=== PATIENT | female | born 1990 | race Caucasian/White ===

== ENCOUNTER 2016-07-19 21:50 | Inpatient (IN) | payer BC ==
[2016-07-19] MEDS ORDERED: Sodium Chloride 0.9% 2.5 ML Syringe FLUSH PRN (22:24)
[2016-07-19] MEDS ORDERED: Butorphanol 1 MG/ML SDV IVPUSH PRN (22:24)
[2016-07-19] MEDS ORDERED: Carboprost Tromethamine 250 MCG/1 ML Amp IM PRN (22:24)
[2016-07-19] MEDS ORDERED: Misoprostol 200 MCG Tab PO PRN (22:24)
[2016-07-19] MEDS ORDERED: Terbutaline 1 MG/ML SDV SUBCUT PRN (22:24)
[2016-07-19] MEDS ORDERED: Lidocaine 1% 50 ML MDV INJECT PRN (22:24)
[2016-07-19] MEDS ORDERED: Sodium Chloride 0.9% 10 ML Syringe FLUSH PRN (22:24)
[2016-07-19] MEDS ORDERED: Methylergonovine 0.2 MG/1 ML Amp IM PRN (22:24)
[2016-07-19] MEDS ORDERED: Water For Irrigation,Sterile 1,000 ML Container IRR PRN (22:24)
[2016-07-19] MEDS ORDERED: Nalbuphine 10 MG/1 ML Vial IVPUSH PRN (22:24)
[2016-07-19] MEDS ORDERED: Oxytocin/Lactated Ringers 30 UNIT/500 ML BAG IV SCH ×2 (22:30)
[2016-07-19] MEDS ORDERED: Misoprostol 25 MCG (1/4 of 100 MCG) Tab VAG SCH (23:00)
[2016-07-20] MEDS ORDERED: Misoprostol 25 MCG (1/4 of 100 MCG) Tab VAG PRN (03:00)
[2016-07-20] MEDS: Lactated Ringers 1,000 ML IV SCH ×2 (06:39→07:49)
[2016-07-20] MEDS ORDERED: Ropivacaine HCl/PF 100 ML ONE (07:10)
[2016-07-20] MEDS ORDERED: fentaNYL 100 MCG/2 ML SDV ONE (07:12)
[2016-07-20] MEDS ORDERED: ePHEDrine 50 MG/ML SDV ONE (07:12)
--- NOTE | 2016-07-20 09:29 | PCM.PREANE ---
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 ) ASA Class: 2 Mental Status: alert & oriented x3 Airway Class: Mallampati = 2 Dentition: Reports: normal dentition Thyro-Mental Finger Breadths: 3 Mouth Opening Finger Breadths: 2 ROM/Head Extension: full Respiratory Status: lungs clear to auscultation bilaterally Cardiovascular Status: regular rate & rhythm, normal S1, S2, no murmur, blood pressure WNL - LAB Values: Laboratory Last Values WBC 10.09 K/uL (4.0-11.0) 07/19/16 22:40 RBC 4.01 M/uL (4.30-5.90) L 07/19/16 22:40 Hgb 11.9 g/dL (12.0-16.0) L 07/19/16 22:40 Hct 36.2 % (36.0-46.0) 07/19/16 22:40 MCV 90.3 fL (80.0-98.0) 07/19/16 22:40 MCH 29.7 pg (27.0-32.0) 07/19/16 22:40 MCHC 32.9 g/dL (31.0-37.0) 07/19/16 22:40 RDW Std Deviation 46.0 fl (28.0-62.0) 07/19/16 22:40 RDW Coeff of Eddie 14 % (11.0-15.0) 07/19/16 22:40 Plt Count 131 K/uL (150-400) L 07/19/16 22:40 MPV 11.90 fL (7.40-12.00) 07/19/16 22:40 Nucleated RBC % 0.0 /100WBC 07/19/16 22:40 Nucleated RBCs # 0 K/uL 07/19/16 22:40 Blood Type A POSITIVE 07/19/16 22:40 Antibody Screen NEGATIVE 07/19/16 22:40 - ALLERGIES Allergies/Adverse Reactions: Allergies Allergy/AdvReac Type Severity Reaction Status Date / Time No Known Allergies Allergy Verified 03/03/16 11:21 - ANESTHESIA PLAN Anesthesia Type Planned: epidural - ACKNOWLEDGEMENTS Pt an appropriate candidate for the planned anesthesia: Yes Alternatives and risks of anesthesia discussed w pt/guardian: Yes Pt/Guardian understands and agree with anesthesia plan: Yes PreAnesthesia Questionnaire Genitourinary History: Reports: Renal calculus 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 - Past Surgical History Female Surgical History: Reports: Lithotripsy/ESWL Musculoskeletal Surgical History: Reports: Shoulder surgery - SUBSTANCE USE Smoking Status *Q: Never Smoker Second Hand Smoke Exposure: No Recreational Drug Use History: No - HOME MEDS Home Medications: Home Meds oxyCODONE 5 mg PO Q4H #10 tablet 03/02/16 [Rx] Pnv No.122/Iron/Folic Acid [ Multi Tablet] 1 each PO DAILY 03/03/16 [ History] - CURRENT (IN HOUSE) MEDS Current Meds: Current Medications Butorphanol Tartrate (Stadol) 1 mg IVPUSH ASDIRECTED PRN PRN Reason: Pain Carboprost Tromethamine (Hemabate Ds) 250 mcg IM ASDIRECTED PRN PRN Reason: Post Hemorrhage Lactated Ringer's (Ringers, Lactated) 1,000 mls @ 150 mls/hr IV ASDIRECTED ÁLVARO Last Admin: 07/20/16 07:49 Dose: 150 mls/hr Oxytocin/Lactated Ringer's (Pitocin In Lr 30 Units/500 Ml) 30 unit in 500 mls @ 2 mls/hr IV TITRATE ÁLVARO; 2 MUNITS/MIN PRN Reason: Protocol Last Admin: 07/20/16 08:50 Dose: 2 munits/min, 2 mls/hr Lidocaine HCl (Xylocaine 1%) 50 ml INJECT .ONCE PRN PRN Reason: Laceration repair Methylergonovine Maleate (Methergine) 0.2 mg IM ASDIRECTED PRN PRN Reason: Post Hemorrhage Misoprostol (Cytotec) 200 mcg PO .ONCE PRN PRN Reason: Post Hemorrhage Misoprostol (Cytotec) 25 mcg VAG .ONCE ÁLVARO Last Admin: 07/19/16 23:23 Dose: 25 mcg Misoprostol (Cytotec) 25 mcg VAG Q4H PRN PRN Reason: Cervical Ripening Stop: 07/21/16 07:01 Nalbuphine HCl (Nubain) 10 mg IVPUSH ASDIRECTED PRN PRN Reason: Pain (severe 7-10) Stop: 07/21/16 22:25 Sodium Chloride (Saline Flush) 10 ml FLUSH ASDIRECTED PRN PRN Reason: Keep Vein Open Sodium Chloride (Saline Flush) 2.5 ml FLUSH ASDIRECTED PRN PRN Reason: Keep Vein Open Sterile Water (Sterile Water For Irrigation) 1,000 ml IRR ASDIRECTED PRN PRN Reason: delivery Terbutaline Sulfate (Brethine) 0.25 mg SUBCUT ASDIRECTED PRN PRN Reason: Tacysystole Discontinued Medications Ephedrine Sulfate (Ephedrine Sulfate) Confirm Administered Dose 50 mg .ROUTE .STK-MED ONE Stop: 07/20/16 07:13 Fentanyl (Sublimaze) Confirm Administered Dose 200 mcg .ROUTE .STK-MED ONE Stop: 07/20/16 07:13 Oxytocin/Lactated Ringer's (Pitocin In Lr 30 Units/500 Ml) 30 unit in 500 mls @ 500 mls/hr IV TITRATE [facility] PRN Reason: 500 MUNITS/MIN Stop: 07/19/16 23:29 Ropivacaine (Naropin 0.2%) Confirm Administered Dose 100 mls @ as directed .ROUTE .STK-MED ONE Stop: 07/20/16 07:11
[2016-07-20] MEDS ORDERED: Ondansetron 4 MG/2 ML SDV IVPUSH PRN (10:48)
[2016-07-20] MEDS ORDERED: Sodium Chloride 0.65% Nasal Spray 45 ML Bottle NASBOTH PRN (11:36)
[2016-07-20] MEDS ORDERED: Docusate Sodium 100 MG Cap PO PRN (12:50)
[2016-07-20] MEDS ORDERED: Benzocaine/Menthol 20%-0.5% Spray 78 GM Cannister TOP PRN (12:50)
[2016-07-20] MEDS ORDERED: Lanolin 100% Cream 7 GM Tube TOP PRN (12:50)
[2016-07-20] MEDS ORDERED: Witch Hazel Medicated Pads 40/Jar TOP PRN (12:50)
[2016-07-20] MEDS ORDERED: oxyCODONE 5 MG Tab PO PRN (12:50)
[2016-07-20] MEDS ORDERED: Bisacodyl 10 MG Supp RECTAL PRN (12:50)
[2016-07-20] MEDS ORDERED: Acetaminophen 500 MG Tab PO PRN ×2 (12:50)
[2016-07-20] MEDS ORDERED: Ibuprofen 400 MG Tab PO PRN (12:50)
[2016-07-20] MEDS: Ibuprofen 800 MG Tab PO PRN (17:15)
--- NOTE | 2016-07-20 18:38 | PCM48HPAN ---
Post Anesthesia Note - EVALUATION WITHIN 48HRS OF ANESTHETIC Vital Signs in Normal Range: Yes Patient Participated in Evaluation: Yes Respiratory Function Stable: Yes Airway Patent: Yes Cardiovascular Function Stable: Yes Hydration Status Stable: Yes Pain Control Satisfactory: Yes Nausea and Vomiting Control Satisfactory: Yes Mental Status Recovered: Yes - COMMENTS/OBSERVATIONS Free Text/Narrative:: Full return of sensation and motor movement to lower extremities. Denies any problems or complications from epidural.
--- NOTE | 2016-07-20 21:33 | OR ---
SURGEON: Brit Mcintosh MD DATE OF PROCEDURE: 07/20/2016 PREOPERATIVE DIAGNOSES: 1. Term at 39 weeks and 1 day. 2. Elective induction of labor. POSTOPERATIVE DIAGNOSES: 1. Term at 39 weeks and 1 day. 2. Elective induction of labor. 3. Delivered. PROCEDURE: Spontaneous vaginal delivery ANESTHESIA: Epidural. ESTIMATED BLOOD LOSS: 150 mL. COMPLICATIONS: None. DISPOSITION: Mother and baby stable in Labor and delivery room, bonding. FINDINGS: Male infant, weight 3180 g. score 8 and 9 at 1 and 5 minutes respectively. Clear amniotic fluid. Nuchal cord, loose x 2. Grossly normal placenta with 3-vessel cord. Intact perineum. BRIEF HISTORY: The patient is a 25-year-old G4, P2 at 39 weeks and 1 day gestation, uncomplicated care. Admitted overnight at 39 weeks gestation for elective induction of labor secondary to history of shoulder dystocia complicated with third-degree laceration. GBS negative. She received a dose of Cytotec, 25mcg, on admission. Artificial rupture of membranes was performed at about 5:00 a.m. this morning, clear amniotic fluid and oxytocin infusion was commenced as per protocol. She received epidural for pain management. She made good progress, became fully dilated and commenced active pushing. She pushed quite well bringing the baby's head down to a +5 station and was set up for delivery in the modified dorsal lithotomy position. PROCEDURE IN DETAIL: She had spontaneous vaginal delivery of a live male infant in left occipital anterior position, nuchal cord twice, loose, easily reduced, clear amniotic fluid at delivery. Anterior and posterior shoulders and the rest of the baby were delivered without difficulty. Baby was vigorous and cried spontaneously at . Baby was delivered onto the maternal abdomen with the nursery nurse attending to him. The cord was double clamped after it had ceased pulsating and was cut by the father of the baby. With delivery of the , oxytocin infusion, titration was commenced for active management of third stage of labor. Cord blood and gas samples were obtained. Placenta was delivered by controlled cord traction appeared to be complete and intact. Examination of the perineum revealed no lacerations. Uterine massage was performed. The uterus was found to be well contracted below the umbilicus. The patient tolerated the procedure well. Sponge, instrument, and needle counts were correct at the end of the delivery. ADUMVIV / MODL /[id number] MTDD
[2016-07-21] MEDS: Ibuprofen 800 MG Tab PO PRN (03:31)
--- NOTE | 2016-07-21 07:37 | PCM.PNPP ---
- General Info Date of Service: 07/21/16 Functional Status: Reports: pain controlled, tolerating diet, ambulating, urinating - Review of Systems General: Denies: fever, weakness, fatigue, malaise Pulmonary: Denies: shortness of breath, pleuritic chest pain, cough Cardiovascular: Denies: chest pain, palpitations, dyspnea on exertion Gastrointestinal: Denies: Abdominal pain Genitourinary: Denies: dysuria, incontinence Neurological: Denies: dizziness, headache Psychiatric: Denies: confusion, depression, mood lability - Patient Data Vital Signs - most recent: Last Vital Signs Temp 36.8 C 07/21/16 05:19 Pulse 80 07/21/16 05:19 Resp 17 07/21/16 05:19 BP 104/60 07/21/16 05:19 Pulse Ox 98 07/21/16 05:19 Weight - most recent: 182 lb Lab Results - last 24 hrs: Laboratory Results - last 24 hr 07/21/16 Range/Units 04:20 Hgb 11.7 L (12.0-16.0) g/dL Hct 35.0 L (36.0-46.0) % Med Orders - Current: Current Medications Acetaminophen (Tylenol Extra Strength) 500 mg PO Q4H PRN PRN Reason: Pain Acetaminophen (Tylenol Extra Strength) 1,000 mg PO Q4H PRN PRN Reason: Pain Last Admin: 07/20/16 20:44 Dose: 1,000 mg Benzocaine/Menthol (Dermoplast Pain Relief 20%-0.5% [place]) 78 gm TOP ASDIRECTED PRN PRN Reason: Perineal Comfort Measure Last Admin: 07/20/16 17:24 Dose: 78 gm Bisacodyl (Dulcolax) 10 mg RECTAL .ONCE PRN PRN Reason: Constipation Docusate Sodium (Colace) 100 mg PO BID PRN PRN Reason: Constipation Emollient Ointment (Lansinoh Hpa) 0 gm TOP ASDIRECTED PRN PRN Reason: Sore Nipples Ibuprofen (Motrin) 400 mg PO Q4H PRN PRN Reason: Pain Ibuprofen (Motrin) 800 mg PO Q6H PRN PRN Reason: Pain Last Admin: 07/21/16 03:31 Dose: 800 mg Oxycodone HCl (Oxycodone) 5 mg PO Q2H PRN PRN Reason: Pain Last Admin: 07/20/16 17:14 Dose: 5 mg Witch Zoila (Tucks) 1 pad TOP ASDIRECTED PRN PRN Reason: comfort care Last Admin: 07/20/16 17:23 Dose: 1 pad Discontinued Medications Butorphanol Tartrate (Stadol) 1 mg IVPUSH ASDIRECTED PRN PRN Reason: Pain Carboprost Tromethamine (Hemabate Ds) 250 mcg IM ASDIRECTED PRN PRN Reason: Post Hemorrhage Ephedrine Sulfate (Ephedrine Sulfate) Confirm Administered Dose 50 mg .ROUTE .STK-MED ONE Stop: 07/20/16 07:13 Fentanyl (Sublimaze) Confirm Administered Dose 200 mcg .ROUTE .STK-MED ONE Stop: 07/20/16 07:13 Lactated Ringer's (Ringers, Lactated) 1,000 mls @ 150 mls/hr IV ASDIRECTED ÁLVARO Last Admin: 07/20/16 07:49 Dose: 150 mls/hr Oxytocin/Lactated Ringer's (Pitocin In Lr 30 Units/500 Ml) 30 unit in 500 mls @ 500 mls/hr IV TITRATE ÁLVARO PRN Reason: 500 MUNITS/MIN Stop: 07/19/16 23:29 Oxytocin/Lactated Ringer's (Pitocin In Lr 30 Units/500 Ml) 30 unit in 500 mls @ 2 mls/hr IV TITRATE ÁLVARO; 2 MUNITS/MIN PRN Reason: Protocol Last Titration: 07/20/16 11:36 Dose: 16 munits/min, 16 mls/hr Ropivacaine (Naropin 0.2%) Confirm Administered Dose 100 mls @ as directed .ROUTE .STK-MED ONE Stop: 07/20/16 07:11 Lidocaine HCl (Xylocaine 1%) 50 ml INJECT .ONCE PRN PRN Reason: Laceration repair Methylergonovine Maleate (Methergine) 0.2 mg IM ASDIRECTED PRN PRN Reason: Post Hemorrhage Misoprostol (Cytotec) 200 mcg PO .ONCE PRN PRN Reason: Post Hemorrhage Misoprostol (Cytotec) 25 mcg VAG .ONCE ÁLVARO Last Admin: 07/19/16 23:23 Dose: 25 mcg Misoprostol (Cytotec) 25 mcg VAG Q4H PRN PRN Reason: Cervical Ripening Stop: 07/21/16 07:01 Nalbuphine HCl (Nubain) 10 mg IVPUSH ASDIRECTED PRN PRN Reason: Pain (severe 7-10) Stop: 07/21/16 22:25 Ondansetron HCl (Zofran) 4 mg IVPUSH Q6H PRN PRN Reason: Nausea/Vomiting Last Admin: 07/20/16 10:54 Dose: 4 mg Sodium Chloride (Saline Flush) 10 ml FLUSH ASDIRECTED PRN PRN Reason: Keep Vein Open Sodium Chloride (Saline Flush) 2.5 ml FLUSH ASDIRECTED PRN PRN Reason: Keep Vein Open Sodium Chloride ([place] Nasal [place]) 0 ml NASBOTH Q2H PRN PRN Reason: Congestion Sterile Water (Sterile Water For Irrigation) 1,000 ml IRR ASDIRECTED PRN PRN Reason: delivery Terbutaline Sulfate (Brethine) 0.25 mg SUBCUT ASDIRECTED PRN PRN Reason: Tacysystole - Interaction Support Person: - Recovery Exam Fundal Tone: Firm Fundal Level: 1 Fingerbreadths Below Umbilicus Fundal Placement: Midline Lochia Amount: Scant Lochia Color: Rubra/Red Perineum Description: Intact, Minimal Bruising/Swelling Episiotomy/Laceration: None Bladder Status: Voiding Urinary Elimination: Voided - Problem List & Annotations (1) Vaginal delivery SNOMED Code(s): 245243218 Code(s): O80 - ENCOUNTER FOR FULL-TERM UNCOMPLICATED DELIVERY Status: Acute Current Visit: Yes - Problem List Review Problem List Initiated/Reviewed/Updated: Yes - My Orders Last 24 Hours: My Active Orders 07/20/16 12:50 Patient Status [ADT] Routine May Shower [RC] ASDIRECTED Up ad Sahra [RC] ASDIRECTED Vital Signs [RC] PER UNIT ROUTINE Acetaminophen [Tylenol Extra Strength] 1,000 mg PO Q4H PRN Acetaminophen [Tylenol Extra Strength] 500 mg PO Q4H PRN Benzocaine/Menthol [Dermoplast Pain Relief 20%-0.5% [place]] 78 gm TOP ASDIRECTED PRN Bisacodyl [Dulcolax] 10 mg RECTAL .ONCE PRN Docusate Sodium [Colace] 100 mg PO BID PRN Ibuprofen [Motrin] 400 mg PO Q4H PRN Ibuprofen [Motrin] 800 mg PO Q6H PRN Lanolin [Lansinoh HPA] See Dose Instructions TOP ASDIRECTED PRN [place] Zoila [Tucks] 1 pad TOP ASDIRECTED PRN oxyCODONE 5 mg PO Q2H PRN Assess Lochia [WOMSER] Per Unit Routine Assess Uterine Involution [WOMSER] Per Unit Routine Breast Pump [WOMSER] Per Unit Routine Peripheral IV Discontinue [OM.PC] Routine Resuscitation Status Routine 07/20/16 12:51 Perineal Care [OM.PC] Per Unit Routine 07/20/16 Dinner Regular Diet [DIET] - Assessment Assessment:: PPD#1 s/p , stable and afebrile No concerns. Hgb stable - Plan Plan:: Discharge instructions reviewed Nothing in the vagina for 6 weeks Bleeding and infection precautions reviewed OTC pain meds Continue PNV Follow up in 6 weeks at [facility]
[2016-07-21 09:13] VITALS: BP 107/64
== END 2016-07-21 14:55 | disposition home or self-care (01) | DRG 560 ==
LOC: MW.OBCHECK 21:50 → MW.OB 22:24 → OBSVTOIN 07-20 12:35
PROVIDERS: ADMIT Obstetrics & Gynecology; ATTEND Obstetrics & Gynecology
PROC: 10E0XZZ Delivery of Products of Conception, External Approach (ICD-10-PCS; principal; 2016-07-20)
PROC: 10907ZC Drainage of Amniotic Fluid, Therapeutic from Products of Conception, Via Natural or Artificial Opening (ICD-10-PCS; 2016-07-20)
PROC: 3E0P7GC Introduction of Other Therapeutic Substance into Female Reproductive, Via Natural or Artificial Opening (ICD-10-PCS; 2016-07-20)
DX: O80 Encounter for full-term uncomplicated delivery (principal); Z3A.39 39 weeks gestation of pregnancy; Z37.0 Single live birth
CPT/HCPCS: 01967; 36415; 59025; 85014; 85018; 85027; 86850; 86900; 86901; A9270-GY; J2405; J2795; J3010; J7120

== ENCOUNTER 2020-01-20 04:59 | Inpatient (IN) | payer BC ==
[2020-01-20] MEDS ORDERED: Misoprostol 200 MCG Tab PO PRN (05:27)
[2020-01-20] MEDS ORDERED: Lidocaine 1% 50 ML MDV INJECT PRN (05:27)
[2020-01-20] MEDS ORDERED: Nalbuphine 10 MG/1 ML Vial IVPUSH PRN (05:27)
[2020-01-20] MEDS ORDERED: Methylergonovine 0.2 MG/1 ML Amp IM PRN (05:27)
[2020-01-20] MEDS ORDERED: Tranexamic Acid 1,000 MG in Sodium Chloride 0.9% 100 ML IV PRN (05:27)
[2020-01-20] MEDS ORDERED: Sodium Chloride 0.9% 10 ML Syringe FLUSH PRN (05:27)
[2020-01-20] MEDS ORDERED: Water For Irrigation,Sterile 1,000 ML Container IRR PRN (05:27)
[2020-01-20] MEDS ORDERED: Carboprost Tromethamine 250 MCG/1 ML Amp IM PRN (05:27)
[2020-01-20] MEDS ORDERED: Sodium Chloride 0.9% 10 ML SDV IV PRN (05:27)
[2020-01-20] MEDS ORDERED: Butorphanol 1 MG/ML SDV IVPUSH PRN (05:27)
[2020-01-20] MEDS ORDERED: Sodium Chloride 0.9% 2.5 ML Syringe FLUSH PRN (05:27)
[2020-01-20] MEDS ORDERED: Oxytocin/0.9 % Sodium Chloride 30 UNIT/500 ML BAG IV SCH ×2 (05:30→05:45)
[2020-01-20] MEDS ORDERED: Terbutaline 1 MG/ML SDV SUBCUT PRN (05:32)
[2020-01-20] MEDS ORDERED: Misoprostol 25 MCG (1/4 of 100 MCG) Tab VAG PRN ×2 (05:32)
[2020-01-20] MEDS ORDERED: Misoprostol 25 MCG (1/4 of 100 MCG) Tab PO ONE (06:47)
[2020-01-20] MEDS: Lactated Ringers 1,000 ML IV SCH ×3 (07:20→20:24)
--- NOTE | 2020-01-20 08:11 | PCM.LDHP ---
L&D History of Present Illness - General Date of Service: 01/20/20 Admit Problem/Dx: Patient Status Order with Admit Dx/Problem 01/20/20 05:28 Patient Status [ADT] Routine Admission Diagnosis/Problem Admission Diagnosis/Problem - planned 01/20/20 08:06 Susie is a 29 yo at 39.0 weeks gestation (YARIEL 01/27/2022) that presents today for IOL due to problematic kidney stones/right flank pain this . A pos, RI, GBS neg. Other pertinent history includes: anxiety, SAB, x 3 (proven pelvis to 7 lb 5 oz), H/O kideny stones, pre- obesity. Patient reports adequate movement; denies vaginal bleeding, LOF, or any other problems or concerns at this time, 0/10 pain at this time. Source of Information: Patient History Limitations: Reports: No Limitations - Related Data Allergies/Adverse Reactions: Allergies Allergy/AdvReac Type Severity Reaction Status Date / Time No Known Allergies Allergy Verified 01/20/20 05:23 Home Medications: Home Meds oxyCODONE 5 mg PO Q4H #10 tablet 03/02/16 [Rx] No122/Iron/Folic Acid [ Multi Tablet] 1 each PO DAILY 03/03/16 [History] Past Medical History HEENT History: Reports: Impaired Vision Cardiovascular History: Reports: None Respiratory History: Reports: None Gastrointestinal History: Reports: None Genitourinary History: Reports: Renal Calculus 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 Endocrine/Metabolic History: Reports: None Hematologic History: Reports: None Immunologic History: Reports: None Dermatologic History: Reports: None - Infectious Disease History Infectious Disease History: Reports: None - Past Surgical History Musculoskeletal Surgical History: Reports: Shoulder Surgery Social & Family History - Family History Endocrine/Metabolic: Reports: Diabetes, type II Oncologic: Reports: Lung - Tobacco Use Smoking Status *Q: Never Smoker Second Hand Smoke Exposure: No - Caffeine Use Caffeine Use: Reports: Coffee - Alcohol Use Alcohol Use History: No - Recreational Drug Use Recreational Drug Use: No H&P Review of Systems - Review of Systems: Review Of Systems: Comprehensive ROS is negative, except as noted in HPI. General: Reports: No Symptoms HEENT: Reports: No Symptoms Pulmonary: Reports: No Symptoms Cardiovascular: Reports: No Symptoms Gastrointestinal: Reports: No Symptoms, Other (Gravid uterus, 39 cm) Genitourinary: Reports: No Symptoms Musculoskeletal: Reports: No Symptoms Skin: Reports: No Symptoms Psychiatric: Reports: No Symptoms Neurological: Reports: No Symptoms Hematologic/Lymphatic: Reports: No Symptoms Immunologic: Reports: No Symptoms L&D Exam - Exam Exam: See Below - Vital Signs Vital Signs: BP 123/80 (89), T 97.5, RR 15, HR 87 Weight: 201 lb - OB Specific Fundal Height In cm: 39 Contraction Intensity: Irritability Movement: Active Heart Tones: Present Heart Tones per Min: 130 Heart Rate (FHR) Variability: Moderate (6-25 bmp) Presentation: Vertex (Confirmed vertex via handheld TAUS today.) - Rothman Score Rothman Score Cervix Position: Posterior Rothman Score Consistency: Medium Rothman Score Effacement: 31-50% Rothman Score Dilation: 1-2 cm Rothman Score Infant's Station: -2 Rothman Score Total: 4 - Exam General: Alert, Oriented HEENT: Conjunctiva Clear, Hearing Intact, Mucosa Moist & [place], Normal Nasal Septum, PERRLA Neck: Supple, Trachea Midline Lungs: Clear to Auscultation, Normal Respiratory Effort Cardiovascular: Regular Rate, Regular Rhythm GI/Abdominal Exam: Normal Bowel Sounds, Soft, Non-Tender, No Organomegaly, No Distention, Pelvis Stable Rectal Exam: Deferred Genitourinary: Normal external exam, Enlarged uterus (Gravid uterus) Back Exam: Normal Inspection (No CVA tenderness), Full Range of Motion Extremities: Normal Inspection, Normal Range of Motion, Non-Tender, No Pedal Edema, Normal Capillary Refill Skin: Warm, Dry, Intact Neurological: Cranial Nerves Intact, Reflexes Equal Bilateral Psychiatric: Alert, Normal Affect, Normal Mood - Patient Data Lab Results Last 24 hrs: Laboratory Results - last 24 hr 01/20/20 01/20/20 01/20/20 Range/Units 05:50 05:50 06:05 WBC 9.71 (4.0-11.0) K/uL RBC 4.15 L (4.30-5.90) M/uL Hgb 12.0 (12.0-16.0) g/dL Hct 36.8 (36.0-46.0) % MCV 88.7 (80.0-98.0) fL MCH 28.9 (27.0-32.0) pg MCHC 32.6 (31.0-37.0) g/dL RDW Std Deviation 46.9 (28.0-62.0) fl RDW Coeff of Eddie 15 (11.0-15.0) % Plt Count 157 (150-400) K/uL MPV 11.80 (7.40-12.00) fL Nucleated RBC % 0.0 /100WBC Nucleated RBCs # 0 K/uL COVID-19 (SUHA) NEGATIVE (NEGATIVE) Blood Type A POSITIVE Antibody Screen NEGATIVE Result Diagrams: 01/20/20 05:50 - Problem List (1) Elective induction of labor planned SNOMED Code(s): 278409282 ICD Code: [id number] - Status: Acute Priority: High Current Visit: Yes (2) 39 weeks gestation of SNOMED Code(s): 68267596 ICD Code: Z3A.39 - 39 WEEKS GESTATION OF Status: Acute Priority: High Current Visit: Yes (3) Renal calculus, right SNOMED Code(s): 02359789 ICD Code: N20.0 - CALCULUS OF KIDNEY Status: Acute Priority: High Current Visit: Yes Problem List Initiated/Reviewed/Updated: Yes Orders Last 24hrs: Active Orders 24 hr Category Date Time Status Patient Status [ADT] Routine ADT 01/20/20 05:28 Active Communication Order [RC] ASDIRECTED Care 01/20/20 05:33 Active Communication Order [RC] ASDIRECTED Care 01/20/20 05:33 Active Communication Order [RC] ASDIRECTED Care 01/20/20 05:33 Active Heart Tones [RC] CONTINUOUS Care 01/20/20 05:28 Active Non Stress Test [RC] PER UNIT ROUTINE Care 01/20/20 05:28 Active May Shower [RC] ASDIRECTED Care 01/20/20 05:28 Active Notify Provider [RC] PRN Care 01/20/20 05:28 Active Notify Provider [RC] PRN Care 01/20/20 05:33 Active Notify Provider [RC] PRN Care 01/20/20 05:33 Active Notify Provider [RC] STAT Care 01/20/20 05:33 Active Oxygen Therapy [RC] ASDIRECTED Care 01/20/20 05:33 Active Up ad Sahra [RC] ASDIRECTED Care 01/20/20 05:28 Active Vaginal Exam [RC] PRN Care 01/20/20 05:28 Active Vital Signs [RC] PER UNIT ROUTINE Care 01/20/20 05:28 Active RPR (SYPHILIS SERO) W/ RFLX [REF] Routine Lab 01/20/20 05:50 Received Butorphanol [Stadol] Med 01/20/20 05:27 Active 1 mg IVPUSH Q1H PRN Carboprost Tromethamine [Hemabate DS] Med 01/20/20 05:27 Active 250 mcg IM ASDIRECTED PRN Lactated Ringers [Ringers, Lactated] 1,000 ml Med 01/20/20 05:30 Active IV ASDIRECTED Lidocaine 1% [Xylocaine 1%] Med 01/20/20 05:27 Active 50 ml INJECT ONETIME PRN Methylergonovine [Methergine] Med 01/20/20 05:27 Active 0.2 mg IM ASDIRECTED PRN Nalbuphine [Nubain] Med 01/20/20 05:27 Active 10 mg IVPUSH Q1H PRN Oxytocin/0.9 % Sodium Chloride [Oxytocin 30 Unit/500 ML Med 01/20/20 05:30 Active -NS] 30 unit in 500 ml IV TITRATE Oxytocin/0.9 % Sodium Chloride [Oxytocin 30 Unit/500 ML Med 01/20/20 05:45 Active -NS] 30 unit in 500 ml IV TITRATE Sodium Chloride 0.9% [Normal Saline] Med 01/20/20 05:27 Active 10 ml IV ASDIRECTED PRN Sodium Chloride 0.9% [Saline Flush] Med 01/20/20 05:27 Active 10 ml FLUSH ASDIRECTED PRN Sodium Chloride 0.9% [Saline Flush] Med 01/20/20 05:27 Active 2.5 ml FLUSH ASDIRECTED PRN Terbutaline [Brethine] Med 01/20/20 05:32 Active 0.25 mg SUBCUT ASDIRECTED PRN Tranexamic Acid [Cyklokapron] 1,000 mg Med 01/20/20 05:27 Active Sodium Chloride 0.9% [Normal Saline] 100 ml IV ONETIME Water For Irrigation,Sterile [Sterile Water for Med 01/20/20 05:27 Active Irrigation] 1,000 ml IRR ASDIRECTED PRN miSOPROStoL [Cytotec] Med 01/20/20 05:27 Active 200 mcg PO ONETIME PRN miSOPROStoL [Cytotec] Med 01/20/20 05:32 Active 25 mcg VAG ONETIME PRN miSOPROStoL [Cytotec] Med 01/20/20 05:32 Active 25 mcg VAG Q4H PRN Scalp Electrode [WOMSER] Per Unit Routine Oth 01/20/20 05:28 Ordered Medication Administration Instruction [OM.PC] Q3H Oth 01/20/20 05:45 Ordered Peripheral IV Insertion Adult [OM.PC] Routine Oth 01/20/20 05:28 Ordered Resuscitation Status Routine Resus Stat 01/20/20 05:27 Ordered Medication Orders Butorphanol Tartrate (Stadol) 1 mg IVPUSH Q1H PRN PRN Reason: Pain Carboprost Tromethamine (Hemabate Ds) 250 mcg IM ASDIRECTED PRN PRN Reason: Post Hemorrhage Oxytocin/Sodium Chloride (Oxytocin 30 Unit/500 Ml-Ns) 30 unit in 500 mls @ 500 mls/hr IV TITRATE [facility] Tranexamic Acid 1,000 mg/ (Sodium Chloride) 110 mls @ 660 mls/hr IV ONETIME PRN PRN Reason: Bleeding Lactated Ringer's (Ringers, Lactated) 1,000 mls @ 150 mls/hr IV ASDIRECTED ÁLVARO Last Admin: 01/20/20 07:20 Dose: 150 mls/hr Documented by: MARLENY Oxytocin/Sodium Chloride (Oxytocin 30 Unit/500 Ml-Ns) 30 unit in 500 mls @ 2 mls/hr IV TITRATE [facility]; Protocol Lidocaine HCl (Xylocaine 1%) 50 ml INJECT ONETIME PRN PRN Reason: Laceration repair Methylergonovine Maleate (Methergine) 0.2 mg IM ASDIRECTED PRN PRN Reason: Post Hemorrhage Misoprostol (Cytotec) 200 mcg PO ONETIME PRN PRN Reason: Post Hemorrhage Misoprostol (Cytotec) 25 mcg VAG ONETIME PRN PRN Reason: Cervical Ripening Misoprostol (Cytotec) 25 mcg VAG Q4H PRN PRN Reason: Cervical Ripening Last Admin: 01/20/20 06:47 Dose: 25 mcg Documented by: MARLENY Nalbuphine HCl (Nubain) 10 mg IVPUSH Q1H PRN PRN Reason: Pain (severe 7-10) Sodium Chloride (Saline Flush) 10 ml FLUSH ASDIRECTED PRN PRN Reason: Keep Vein Open Sodium Chloride (Saline Flush) 2.5 ml FLUSH ASDIRECTED PRN PRN Reason: Keep Vein Open Sodium Chloride (Normal Saline) 10 ml IV ASDIRECTED PRN PRN Reason: IV Use Sterile Water (Sterile Water For Irrigation) 1,000 ml IRR ASDIRECTED PRN PRN Reason: delivery Terbutaline Sulfate (Brethine) 0.25 mg SUBCUT ASDIRECTED PRN PRN Reason: Tacysystole Assessment/Plan Comment:: Admit for observation to L&D today for IOL due to H/O right kidney stones this . See new orders, plan for cytotec to pitocin protocol. RN to notify provider on-call if problems arise. May receive epidural analgesia between 4-[address] Lewis notified and agreeable with POC.
[2020-01-20] MEDS ORDERED: Oxytocin/0.9 % Sodium Chloride 30 UNIT/500 ML BAG ONE (10:04)
[2020-01-20] MEDS ORDERED: Ropivacaine HCl/PF 100 ML ONE (13:06)
[2020-01-20] MEDS ORDERED: fentaNYL 100 MCG/2 ML SDV ONE ×2 (13:06→21:17)
--- NOTE | 2020-01-20 13:32 | PCM.PREANE ---
Preanesthetic Assessment - Anesthesia/Transfusion/Family Hx Anesthesia History: Prior Anesthesia Without Reaction Family History of Anesthesia Reaction: No Transfusion History: Prior Transfusion Without Reaction - Physical Assessment NPO Status Date: 01/20/20 NPO Status Time: 11:00 Height: 1.57 m Weight: 91.172 kg ASA Class: 2 - Lab Values: Laboratory Last Values WBC 9.71 K/uL (4.0-11.0) 01/20/20 05:50 RBC 4.15 M/uL (4.30-5.90) L 01/20/20 05:50 Hgb 12.0 g/dL (12.0-16.0) 01/20/20 05:50 Hct 36.8 % (36.0-46.0) 01/20/20 05:50 MCV 88.7 fL (80.0-98.0) 01/20/20 05:50 MCH 28.9 pg (27.0-32.0) 01/20/20 05:50 MCHC 32.6 g/dL (31.0-37.0) 01/20/20 05:50 RDW Std Deviation 46.9 fl (28.0-62.0) 01/20/20 05:50 RDW Coeff of Eddie 15 % (11.0-15.0) 01/20/20 05:50 Plt Count 157 K/uL (150-400) 01/20/20 05:50 MPV 11.80 fL (7.40-12.00) 01/20/20 05:50 Nucleated RBC % 0.0 /100WBC 01/20/20 05:50 Nucleated RBCs # 0 K/uL 01/20/20 05:50 COVID-19 ([facility]) NEGATIVE (NEGATIVE) 01/20/20 06:05 Blood Type A POSITIVE 01/20/20 05:50 Antibody Screen NEGATIVE 01/20/20 05:50 - Allergies Allergies/Adverse Reactions: Allergies Allergy/AdvReac Type Severity Reaction Status Date / Time No Known Allergies Allergy Verified 01/20/20 05:23 - Acknowledgements Anesthesia Type Planned: Epidural Pt an Appropriate Candidate for the Planned Anesthesia: Yes Alternatives and Risks of Anesthesia Discussed w Pt/Guardian: Yes Pt/Guardian Understands and Agrees with Anesthesia Plan: Yes PreAnesthesia Questionnaire HEENT History: Reports: Impaired Vision Cardiovascular History: Reports: None Respiratory History: Reports: None Gastrointestinal History: Reports: None Genitourinary History: Reports: Renal Calculus LUMBER BEARER History: Reports: , Spontaneous Other OB/BYN History: 19 weeks Musculoskeletal History: Reports: None Neurological History: Reports: None Psychiatric History: Reports: Anxiety, Depression, Other (See Below) Other Psychiatric History: depression when 13 states exercises for treatment. Endocrine/Metabolic History: Reports: None Hematologic History: Reports: None Immunologic History: Reports: None Dermatologic History: Reports: None - Infectious Disease History Infectious Disease History: Reports: None - Past Surgical History Musculoskeletal Surgical History: Reports: Shoulder Surgery - SUBSTANCE USE Smoking Status *Q: Never Smoker Second Hand Smoke Exposure: No Recreational Drug Use History: No - HOME MEDS Home Medications: Home Meds oxyCODONE 5 mg PO Q4H #10 tablet 03/02/16 [Rx] No122/Iron/Folic Acid [ Multi Tablet] 1 each PO DAILY 03/03/16 [History] - CURRENT (IN HOUSE) MEDS Current Meds: Current Medications Butorphanol Tartrate (Stadol) 1 mg IVPUSH Q1H PRN PRN Reason: Pain Carboprost Tromethamine (Hemabate Ds) 250 mcg IM ASDIRECTED PRN PRN Reason: Post Hemorrhage Oxytocin/Sodium Chloride (Oxytocin 30 Unit/500 Ml-Ns) 30 unit in 500 mls @ 500 mls/hr IV TITRATE ÁLVARO Tranexamic Acid 1,000 mg/ (Sodium Chloride) 110 mls @ 660 mls/hr IV ONETIME PRN PRN Reason: Bleeding Lactated Ringer's (Ringers, Lactated) 1,000 mls @ 150 mls/hr IV ASDIRECTED [facility] Last Admin: 01/20/20 13:08 Dose: 999 mls/hr Documented by: Oxytocin/Sodium Chloride (Oxytocin 30 Unit/500 Ml-Ns) 30 unit in 500 mls @ 2 mls/hr IV TITRATE [facility]; Protocol Lidocaine HCl (Xylocaine 1%) 50 ml INJECT ONETIME PRN PRN Reason: Laceration repair Methylergonovine Maleate (Methergine) 0.2 mg IM ASDIRECTED PRN PRN Reason: Post Hemorrhage Misoprostol (Cytotec) 200 mcg PO ONETIME PRN PRN Reason: Post Hemorrhage Misoprostol (Cytotec) 25 mcg VAG ONETIME PRN PRN Reason: Cervical Ripening Misoprostol (Cytotec) 25 mcg VAG Q4H PRN PRN Reason: Cervical Ripening Last Admin: 01/20/20 06:47 Dose: 25 mcg Documented by: Nalbuphine HCl (Nubain) 10 mg IVPUSH Q1H PRN PRN Reason: Pain (severe 7-10) Sodium Chloride (Saline Flush) 10 ml FLUSH ASDIRECTED PRN PRN Reason: Keep Vein Open Sodium Chloride (Saline Flush) 2.5 ml FLUSH ASDIRECTED PRN PRN Reason: Keep Vein Open Sodium Chloride (Normal Saline) 10 ml IV ASDIRECTED PRN PRN Reason: IV Use Sterile Water (Sterile Water For Irrigation) 1,000 ml IRR ASDIRECTED PRN PRN Reason: delivery Terbutaline Sulfate (Brethine) 0.25 mg SUBCUT ASDIRECTED PRN PRN Reason: Tacysystole Discontinued Medications Fentanyl (Sublimaze) Confirm Administered Dose 100 mcg .ROUTE .STK-MED ONE Stop: 01/20/20 13:07 Oxytocin/Sodium Chloride (Oxytocin 30 Unit/500 Ml-Ns) Confirm Administered Dose 30 unit in 500 mls @ as directed .ROUTE .STK-MED ONE Stop: 01/20/20 10:05 Ropivacaine (Naropin 0.2%) Confirm Administered Dose 100 mls @ as directed .ROUTE .STK-MED ONE Stop: 01/20/20 13:07 Misoprostol (Cytotec) 25 mcg PO ONETIME ONE Stop: 01/20/20 06:48 Last Admin: 01/20/20 06:50 Dose: 25 mcg Documented by:
--- NOTE | 2020-01-20 13:35 | PCM.PRNOTE ---
- Free Text/Narrative Note: Anes Note Patient requests epidural for L&D. Sitting position, level L3-L4 midline approach. Chloraprep scrub to lumbar area. Steriel technique. Sterile fenestrated drape applied. Epidural space easily achieved single attempt using JEET technique. JEET at 3 cm. Cath threaded 5 cm with ease. Cath secured at skin at 10 cm using sterile clear adhesive dressing. Test 1315 3 cc 1.5% lido with epi negative. 1320 Load 10 cc 0.2% ropiv with 1mcg cc fentanyl in slow divided doses. 1325 pump started with 90cc same solution. Rate is 8 cc hr with 6 cc q 20 min prn bolus. Dennys well. Time with patient [id number] Gama Chambers TECHNICAL SERVICES ANALYST
[2020-01-20] MEDS ORDERED: Ondansetron 4 MG/2 ML SDV ONE (19:20)
[2020-01-20] MEDS ORDERED: Ondansetron 4 MG/2 ML SDV IVPUSH PRN (19:29)
--- NOTE | 2020-01-20 21:38 | PCM.PRNOTE ---
- Free Text/Narrative Note: Anes Note I was called by surgeon to provide a sitting dose for vaccum assisted vaginal delivery. A solution of 100 mcg fentanyl and 5 cc 2% lidocaine was injected slowly and in divided doses. Time with tanner [id number] Gama Chambers CRNA
[2020-01-20] MEDS ORDERED: Docusate Sodium 100 MG Cap PO PRN (21:51)
[2020-01-20] MEDS ORDERED: Acetaminophen 500 MG Tab PO PRN (21:51)
[2020-01-20] MEDS ORDERED: Witch Hazel Medicated Pads 40/Jar TOP PRN (21:51)
[2020-01-20] MEDS ORDERED: Ibuprofen 400 MG Tab PO PRN (21:51)
[2020-01-20] MEDS ORDERED: Bisacodyl 10 MG Supp RECTAL PRN (21:51)
[2020-01-20] MEDS ORDERED: Lanolin 100% Cream 7 GM Tube TOP PRN (21:51)
[2020-01-20] MEDS ORDERED: Benzocaine/Menthol 20%-0.5% Spray 78 GM Cannister TOP PRN (21:51)
[2020-01-20] MEDS: Ibuprofen 800 MG Tab PO PRN (23:17)
[2020-01-21] MEDS: oxyCODONE 5 MG Tab PO PRN ×3 (00:28→17:26)
[2020-01-21] MEDS: Acetaminophen 500 MG Tab PO PRN ×3 (00:29→17:29)
[2020-01-21] MEDS: Ibuprofen 800 MG Tab PO PRN ×2 (05:06→13:22)
--- NOTE | 2020-01-21 08:27 | PCM.DCSUM1 ---
Discharge Summary - Hospital Course Free Text/Narrative:: Discharge home with baby. Follow up in the clinic in one week to reassess renal calculi. Follow up in the clinic in 6 weeks for routine visit. Diagnosis: Stroke: No Modified Ashley Scale: No Symptoms at All Modified Ashley Scale Score: 0 - Discharge Data Discharge Date: 01/21/20 Discharge Disposition: Home, Self-Care 01 Condition: Good - Referral to Home Health Primary Care Physician: PCP None - Discharge Diagnosis/Problem(s) (1) Vacuum-assisted vaginal delivery SNOMED Code(s): [id number] ICD Code: Z37.9 - OUTCOME OF DELIVERY, UNSPECIFIED Status: Acute Priority: High Current Visit: Yes - Patient Instructions Diet: Regular Diet as Tolerated, Drink 8-10+ Glasses/Day Activity: As Tolerated, No Strenuous Activities, Rest and Relax Today Driving: Do Not Drive Showering/Bathing: May Shower Notify Provider of: Fever, Increased Pain, Swelling and Redness, Drainage, Nausea and/or Vomiting - Discharge Plan *PRESCRIPTION DRUG MONITORING PROGRAM REVIEWED*: Not Applicable *COPY OF PRESCRIPTION DRUG MONITORING REPORT IN PATIENT DANIEL: Not Applicable Prescriptions/Med Rec: Ibuprofen [Motrin] 800 mg PO Q6H PRN #90 tablet PRN Reason: Pain Home Medications: Home Meds oxyCODONE 5 mg PO Q4H #10 tablet 03/02/16 [Rx] No122/Iron/Folic Acid [ Multi Tablet] 1 each PO DAILY 03/03/16 [History] Ibuprofen [Motrin] 800 mg PO Q6H PRN #90 tablet 01/21/20 [Rx] Oxygen Therapy Mode: Room Air - Discharge Summary/Plan Comment DC Time >30 min.: Yes - General Info Date of Service: 01/21/20 Admission Dx/Problem (Free Text: Patient Status Order with Admit Dx/Problem 01/20/20 05:28 Patient Status [ADT] Routine Admission Diagnosis/Problem Admission Diagnosis/Problem - planned 01/20/20 08:06 Susie is a 29 yo at 39.0 weeks gestation (YARIEL 01/27/2022) that presents today for IOL due to problematic kidney stones/right flank pain this . A pos, RI, GBS neg. Other pertinent history includes: anxiety, SAB, x 3 (proven pelvis to 7 lb 5 oz), H/O kideny stones, pre- obesity. Patient reports adequate movement; denies vaginal bleeding, LOF, or any other problems or concerns at this time, 0/10 pain at this time. Functional Status: Reports: Pain Controlled, Tolerating Diet, Ambulating, Urinating - Review of Systems General: Reports: No Symptoms HEENT: Reports: No Symptoms Pulmonary: Reports: No Symptoms Cardiovascular: Reports: No Symptoms Gastrointestinal: Reports: No Symptoms Genitourinary: Reports: No Symptoms Musculoskeletal: Reports: No Symptoms Skin: Reports: No Symptoms Neurological: Reports: No Symptoms Psychiatric: Reports: No Symptoms - Patient Data Vitals - Most Recent: Last Vital Signs Temp 98.1 F 01/21/20 07:49 Pulse 85 01/21/20 07:49 Resp 15 01/21/20 07:49 BP 106/60 01/21/20 07:49 Pulse Ox 95 01/21/20 07:49 Weight - Most Recent: 201 lb I&O - Last 24 hours: Intake & Output 01/20/20 01/21/20 01/21/20 22:59 06:59 14:59 Intake Total 500 1000 Output Total 25 Balance 475 1000 Lab Results - Last 24 hrs: Laboratory Results - last 24 hr 01/21/20 Range/Units 05:19 Hgb 10.4 L (12.0-16.0) g/dL Hct 31.6 L (36.0-46.0) % Med Orders - Current: Current Medications Acetaminophen (Tylenol Extra Strength) 500 mg PO Q4H PRN PRN Reason: Pain Acetaminophen (Tylenol Extra Strength) 1,000 mg PO Q4H PRN PRN Reason: Pain Last Admin: 01/21/20 00:29 Dose: 1,000 mg Documented by: Benzocaine/Menthol (Dermoplast Pain Relief 20%-0.5% [place]) 78 gm TOP ASDIRECTED PRN PRN Reason: Perineal Comfort Measure Bisacodyl (Dulcolax) 10 mg RECTAL ONETIME PRN PRN Reason: Constipation Docusate Sodium (Colace) 100 mg PO BID PRN PRN Reason: Constipation Last Admin: 01/20/20 23:17 Dose: 100 mg Documented by: Emollient Ointment (Lansinoh Hpa) 0 gm TOP ASDIRECTED PRN PRN Reason: Sore Nipples Last Admin: 01/20/20 23:18 Dose: 7 g Documented by: Ibuprofen (Motrin) 400 mg PO Q4H PRN PRN Reason: Pain Ibuprofen (Motrin) 800 mg PO Q6H PRN PRN Reason: Pain Last Admin: 01/21/20 05:06 Dose: 800 mg Documented by: Oxycodone HCl (Oxycodone) 5 mg PO Q2H PRN PRN Reason: Pain Last Admin: 01/21/20 00:28 Dose: 5 mg Documented by: Kian Cummings (Andre) 1 pad TOP ASDIRECTED PRN PRN Reason: comfort care Last Admin: 01/20/20 23:18 Dose: 1 pack Documented by: Discontinued Medications Butorphanol Tartrate (Stadol) 1 mg IVPUSH Q1H PRN PRN Reason: Pain Carboprost Tromethamine (Hemabate Ds) 250 mcg IM ASDIRECTED PRN PRN Reason: Post Hemorrhage Fentanyl (Sublimaze) Confirm Administered Dose 100 mcg .ROUTE .STK-MED ONE Stop: 01/20/20 13:07 Fentanyl (Sublimaze) Confirm Administered Dose 100 mcg .ROUTE .STK-MED ONE Stop: 01/20/20 21:18 Oxytocin/Sodium Chloride (Oxytocin 30 Unit/500 Ml-Ns) 30 unit in 500 mls @ 500 mls/hr IV TITRATE ÁLVARO Tranexamic Acid 1,000 mg/ (Sodium Chloride) 110 mls @ 660 mls/hr IV ONETIME PRN PRN Reason: Bleeding Lactated Ringer's (Ringers, Lactated) 1,000 mls @ 150 mls/hr IV ASDIRECTED ÁLVARO Last Admin: 01/20/20 20:24 Dose: 150 mls/hr Documented by: Oxytocin/Sodium Chloride (Oxytocin 30 Unit/500 Ml-Ns) 30 unit in 500 mls @ 2 mls/hr IV TITRATE ÁLVARO; Protocol Last Titration: 01/20/20 21:50 Dose: Infused Documented by: Oxytocin/Sodium Chloride (Oxytocin 30 Unit/500 Ml-Ns) Confirm Administered Dose 30 unit in 500 mls @ as directed .ROUTE .STK-MED ONE Stop: 01/20/20 10:05 Ropivacaine (Naropin 0.2%) Confirm Administered Dose 100 mls @ as directed .ROUTE .STK-MED ONE Stop: 01/20/20 13:07 Lidocaine HCl (Xylocaine 1%) 50 ml INJECT ONETIME PRN PRN Reason: Laceration repair Methylergonovine Maleate (Methergine) 0.2 mg IM ASDIRECTED PRN PRN Reason: Post Hemorrhage Misoprostol (Cytotec) 200 mcg PO ONETIME PRN PRN Reason: Post Hemorrhage Misoprostol (Cytotec) 25 mcg VAG ONETIME PRN PRN Reason: Cervical Ripening Misoprostol (Cytotec) 25 mcg VAG Q4H PRN PRN Reason: Cervical Ripening Last Admin: 01/20/20 06:47 Dose: 25 mcg Documented by: Misoprostol (Cytotec) 25 mcg PO ONETIME ONE Stop: 01/20/20 06:48 Last Admin: 01/20/20 06:50 Dose: 25 mcg Documented by: Nalbuphine HCl (Nubain) 10 mg IVPUSH Q1H PRN PRN Reason: Pain (severe 7-10) Ondansetron HCl (Zofran) Confirm Administered Dose 4 mg .ROUTE .STK-MED ONE Stop: 01/20/20 19:21 Last Admin: 01/20/20 19:29 Dose: 4 mg Documented by: Ondansetron HCl (Zofran) 4 mg IVPUSH Q6H PRN PRN Reason: Nausea/Vomiting Sodium Chloride (Saline Flush) 10 ml FLUSH ASDIRECTED PRN PRN Reason: Keep Vein Open Sodium Chloride (Saline Flush) 2.5 ml FLUSH ASDIRECTED PRN PRN Reason: Keep Vein Open Sodium Chloride (Normal Saline) 10 ml IV ASDIRECTED PRN PRN Reason: IV Use Sterile Water (Sterile Water For Irrigation) 1,000 ml IRR ASDIRECTED PRN PRN Reason: delivery Terbutaline Sulfate (Brethine) 0.25 mg SUBCUT ASDIRECTED PRN PRN Reason: Tacysystole - Exam General: Reports: Alert, Oriented, Cooperative, No Acute Distress Lungs: Reports: Normal Respiratory Effort Cardiovascular: Reports: Regular Rate, Regular Rhythm GI/Abdominal Exam: Soft, Non-Tender (Female) Exam: Deferred Rectal (Female) Exam: Deferred Back Exam: Reports: Normal Inspection, Full Range of Motion. Denies: CVA Tender ness (L), CVA Tenderness (R) Extremities: Normal Inspection, Normal Range of Motion, Non-Tender, Normal Capillary Refill Skin: Reports: Warm, Dry Wound/Incisions: Reports: Healing Well Neurological: Reports: No New Focal Deficit, Normal Speech, Normal Tone, Strength Equal Bilateral, Sensation Intact Psy/Mental Status: Reports: Alert, Normal Affect, Normal Mood
--- NOTE | 2020-01-21 08:42 | PCM48HPAN ---
Post Anesthesia Note - EVALUATION WITHIN 48HRS OF ANESTHETIC Vital Signs in Normal Range: Yes Patient Participated in Evaluation: Yes Respiratory Function Stable: Yes Airway Patent: Yes Cardiovascular Function Stable: Yes Hydration Status Stable: Yes Pain Control Satisfactory: Yes Nausea and Vomiting Control Satisfactory: Yes Mental Status Recovered: Yes Vital Signs: Last Vital Signs Temp 36.7 C 01/21/20 07:49 Pulse 85 01/21/20 07:49 Resp 15 01/21/20 07:49 BP 106/60 01/21/20 07:49 Pulse Ox 95 01/21/20 07:49 - COMMENTS/OBSERVATIONS Free Text/Narrative:: mild tenderness to palpation of back, skin pink, no erythema, or exudates. The patient has no complaints. There were no apparent anesthetic complications at this time.
[2020-01-21 20:03] VITALS: BP 113/71; PULSE 68
== END 2020-01-21 23:00 | disposition home or self-care (01) | DRG 560 ==
LOC: MW.OBCHECK 04:59 → MW.OB 05:00 → MW.OBCHECK 05:28 → OBSVTOIN 21:51 → MW.OB 23:56
PROVIDERS: ADMIT Obstetrics & Gynecology; ATTEND Obstetrics & Gynecology
PROC: 10D07Z6 Extraction of Products of Conception, Vacuum, Via Natural or Artificial Opening (ICD-10-PCS; principal; 2020-01-20)
DX: O99.89 Other specified diseases and conditions complicating pregnancy, childbirth and the puerperium (principal); N28.89 Other specified disorders of kidney and ureter; Z3A.39 39 weeks gestation of pregnancy; Z37.0 Single live birth; Z20.828 Contact with and (suspected) exposure to other viral communicable diseases
CPT/HCPCS: 01967; 36415; 51701; 51702; 59025; 59409; 85014; 85018; 85027; 86592; 86850; 86900; 86901; A9270-GY; J2405; J2590; J7120; U0002